=== PATIENT | male | born 1975 | race Caucasian/White ===

== ENCOUNTER 2016-10-20 12:32 | Day surgery (SDC) | payer BC, OTHER ==
[2016-10-20] MEDS ORDERED: LR 1,000 ML IV ONE (12:50)
[2016-10-20] MEDS ORDERED: LIDO/EPI 1% **Not for Epidural 20 ML MDV ONE (12:50)
[2016-10-20] MEDS ORDERED: LIDOCAINE 1% 5 ML SDV ID PRN (12:50)
[2016-10-20] MEDS ORDERED: SURGIFLO MATRIX KIT WITH THROMBIN TP ONE (12:51)
[2016-10-20] MEDS ORDERED: LIDOCAINE 1% 2 ML INJ ONE (12:54)
--- NOTE | 2016-10-20 13:09 | PDANEPAE ---
ANE History of Present Illness Nasal polyps. ANE Past Medical History - Cardiovascular History Hx Hypertension: No Hx Arrhythmias: No Hx Chest Pain: No Hx Coronary Artery / Peripheral Vascular Disease: No Hx CHF / Valvular Disease: No Hx Palpitations: No - Pulmonary History Hx COPD: No Hx Asthma/Reactive Airway Disease: Yes Hx Recent Upper Respiratory Infection: No Hx Oxygen in Use at Home: No - Neurologic History Hx Cerebrovascular Accident: No Hx Seizures: No Hx Dementia: No - Endocrine History Hx Diabetes: No Hypothyroid: No Hyperthyroid: No - Renal History Hx Renal Disorders: No - Liver History Hx Hepatic Disorders: No - Neurological & Psychiatric Hx Hx Neurological and Psychiatric Disorders: No - Cancer History Hx Cancer: No - Congenital Disorder History Hx Congenital Disorders: No - GI History Hx Gastrointestinal Disorders: No - Chronic Pain History Chronic Pain: No ANE Review of Systems - Exercise capacity Exercise capacity: <4 METS METS (RN): 5 METS ANE Patient History - Allergies Allergies/Adverse Reactions: acetaminophen Allergy (Verified 10/19/16 15:43) aspirin Allergy (Verified 10/19/16 15:43) NSAIDS (Non-Steroidal Anti-Inflamma Allergy (Verified 10/19/16 15:43) narcotics Allergy (Uncoded 03/07/12 16:25) Anaphylaxis - Home Medications Home Medications: Fluticasone/Salmeterol [Advair 500-50 Diskus] 60 puffs IH DAILY 03/07/12 [Last Taken Unknown] Doxycycline Hyclate 10/19/16 [Last Taken Unknown] Ventolin Hfa Inhaler 10/19/16 [Last Taken Unknown] - NPO status NPO Since - Liquids (Date): 10/19/16 NPO Since - Solids (Date): 10/19/16 - Smoking Hx Smoking Status: Never smoked - Alcohol Use Alcohol Use: None - Family Anes Hx Family Anes Hx: neg - N/A Family Hx Anesthesia Complications: NEG ANE Labs/Vital Signs - Vital Signs Height: 180.34 cm Weight: 65.771 kg ANE Physical Exam - Airway Mallampati Score: Class 2 - Pulmonary Pulmonary: clear to auscultation - Cardiovascular Cardiovascular: regular rate and rhythym - ASA Status ASA Status: II ANE Anesthesia Plan Anesthesia Plan: general endotracheal anesthesia (Patient to use Albuterol inhaler now.)
[2016-10-20] MEDS ORDERED: MIDAZOLAM 2 MG/2 ML VIAL IVP ONE (13:12)
[2016-10-20] MEDS ORDERED: REMIFENTANIL HCL 1 MG VIAL ONE ×2 (13:31→15:42)
[2016-10-20] MEDS ORDERED: PROPOFOL/EMULSION 500 MG/50 ML BOTTLE IV ONE ×2 (13:31→15:43)
--- NOTE | 2016-10-20 13:43 | PDHPUP ---
History & Physical Update H&P update statement: This history and physical update is based on an assessment of the patient which was completed after admission or registration (within 24 hours), but prior to the surgery/procedure. H&P update: H&P reviewed & patient examined, no change in patient's condition since H&P completed
[2016-10-20] MEDS ORDERED: DEXAMETHASONE 4 MG/ML VIAL ONE ×2 (13:49)
[2016-10-20] MEDS ORDERED: ONDANSETRON 4 MG/2 ML VIAL ONE (16:24)
[2016-10-20] MEDS ORDERED: fentaNYL 100 MCG/2 ML INJ ONE ×2 (16:32→17:31)
[2016-10-20] MEDS ORDERED: ALBUTEROL 3 ML DEYVIAL IH PRN (16:38)
[2016-10-20] MEDS ORDERED: fentaNYL 100 MCG/2 ML INJ IVP PRN (16:38)
[2016-10-20] MEDS ORDERED: NALOXONE HCL 0.4 MG/ML INJ IVP PRN (16:38)
[2016-10-20] MEDS ORDERED: ONDANSETRON 4 MG/2 ML VIAL IVP PRN (16:38)
--- NOTE | 2016-10-20 17:08 | POSTOPPROG ---
Post Op Note Date of Operation: 10/20/16 Surgeon: Jens Gonsalves Anesthesiologist: GA Anesthesia: GET(General Endotracheal) Pre-op Diagnosis: Sinonasal Pansinusitis Post-op Diagnosis: Sinonasal Pansinusitis Indication: Sinonasal Pansinusitis Procedure: FESS Maxillaries w, Ethmoids, Frontals Findings: Sinonasal Pansinusitis Inf/Abcess present in the surg proc area at time of surgery?: No Depth: Organ Space EBL: 50-100 Complications: NONE Specimen(s): R & L Sinonasal COntents
[2016-10-20] MEDS ORDERED: oxyCODONE IR 5 MG TAB PO PRN (17:20)
[2016-10-20 18:19] VITALS: RESP 18
[2016-10-20 18:44] VITALS: BP 115/97; PULSE 67; TEMP 208.8; O2SAT 95
[2016-10-21] MEDS ORDERED: DOXYCYCLINE HYCLATE PO SCH (09:00)
[2016-10-21] MEDS ORDERED: ALBUTEROL PO SCH (09:00)
[2016-10-21] MEDS ORDERED: FLUTICASONE/SALMETER 500/50MCG DISKUS IH SCH (09:00)
--- NOTE | 2016-11-04 23:11 | GOP ---
[f rep st] OPERATIVE REPORT DATE OF OPERATION: 10/20/2016 SURGEON: Jens Gonsalves MD ANESTHESIA: General. PREOPERATIVE DIAGNOSIS: Sinonasal pain and sinusitis with polyposis. POSTOPERATIVE DIAGNOSIS: Sinonasal pain and sinusitis with polyposis. PROCEDURE PERFORMED: Functional endoscopic sinus surgery with bilateral maxillary antrostomies and removal of tissue, bilateral total ethmoidectomies, bilateral frontal sinusotomy, and left sphenoid sinusotomy. FINDINGS: Sinonasal pansinusitis with bilateral obstructive nasal polyposis. SPECIMENS: Right and left sinonasal contents. ESTIMATED BLOOD LOSS: 75 mL. INDICATIONS: Long-standing sinonasal pansinusitis with obstructive nasal polyposis. DESCRIPTION OF PROCEDURE: The patient was brought to the operating room by Anesthesiology and place d on the operating table. Once the appropriate level of anesthesia was achieved, bilateral maxillar y lines and visible polyps within the nasal cavity were injected with 1% lidocaine with 1:100,000 ep inephrine. Afrin-soaked pledgets were then placed bilaterally. The patient was then prepped and dr aped in the usual fashion. Following draping, the patient was registered and set up appropriately w pickrset neuro navigation system. There was good concordance with anatomic landmarks at the st art of and throughout the case. Neuronavigation was used to confirm landmarks throughout significan t steps during the case. The remainder of the case was performed under rigid video endoscopic visua lization. Right-sided pledgets were removed. With the pledgets removed, a zero-degree endoscope wa s used to inspect the nasal cavity. A straight microdebrider was used to remove a significant porti on of polypoid material through the nasal cavity extending into the nasopharynx. This was removed u p until the finding of an atrophic floppy middle turbinate. The middle turbinate was then removed u sing a straight Thru-cut. Mild electrocautery was used at the base of the middle turbinates for hem ostasis. With this removed, a microdebrider was used to remove polypoid material that had replaced much of the ethmoid sinus. The total ethmoidectomy was completed with a combination of microdebride r, curette, and upgoing Blakesley. There was good visualization of the ethmoid roof/skull base at t he end of this. Palpation of the right globe showed some mild bulge into the nasal cavity but no de hiscence of the lamina papyracea or membranous wall. An uncinectomy was then completed with a [place] . A guided curved suction was then used to find the natural ostium of the maxillary sinus. Then th e maxillary antrostomy was then created with a combination of backbiter and straight going Thru-cut. Bovie suction electrocautery was then used for hemostasis at the posterior aspect of the maxillary antrostomy. Polypoid material was then removed with a combination of upgoing Blakesley and the jose m rodebrider. A 30-degree endoscope was then used to visualize the remainder of the maxillary sinus. It was clear. With the 30-degree endoscope, the frontal recess was cleared of polypoid material us ing an upgoing Blakesley and the microdebrider. A guided sinus Seeker was then used to find the fro ntal sinus ostium. A combination of upgoing Blakesley and mushroom punch were used to remove polypo id material from the frontal sinus and frontal sinus recess. The frontal sinus was widened with the mushroom punch. There was good visualization into the frontal sinus and it appeared clear at the e nd of this step. Nasal cavity was flushed with copious normal saline. No significant bleeding was seen but there was some generalized ooze throughout. The nasal cavity was then packed with Afrin-so aked pledgets. The pledgets were removed from the left nasal cavity, and under zero-degree video endoscope the nasa l cavity was inspected. A microdebrider was used to remove significant nasal polyposis that extende d from the vestibule through to the nasopharynx. The turbinate was not as atrophic on this side, th ough there was a significant amount of polypoid change. It was elected to remove this and a straigh t-going Thru-cut was again used to complete the middle turbinectomy. The turbinate base was cauteri zed using mild Bovie suction electrocautery. Following this, uncinectomy was completed and the natu ral maxillary sinus ostia was confirmed with a guided suction. The maxillary antrostomy was widened with a combination of backbiter and straight-going Thru-cut. Polypoid material was removed with a Blakesley. Maxillary sinus was visualized with a 30-degree endoscope and was found to be clear afte r this. A zero-degree endoscope was then used to visualize the ethmoid sinuses. The bulla was take n down and a total ethmoidectomy was completed with a combination of curette, [place], and upgoing Blakesley. The ethmoids were clear through to the ethmoid roof/skull base. Polypoid material was s een medial to the middle turbinate root covering the sphenoid sinus ostium. A guided suction was us ed to find the natural ostium and the microdebrider was used to remove polyps in this region. A Ker rison was then used to complete the sphenoid sinusotomy. Following this, a 30-degree endoscope was placed and the frontal recess was cleared of polypoid material with a combination of upgoing Blakesl ey and the microdebrider. The location of the frontal sinus ostium was confirmed with a guided sinu s Seeker. Following this, the ostium and frontal sinus were cleared of polypoid material with a com bination of upgoing Blakesley and a giraffe punch. The giraffe was then used to widen the frontal s inus ostium. There was good visualization of the frontal sinus following this with no evidence of p olypoid disease within the sinus any longer. The nasal cavity was irrigated with copious normal shabbir ine. The posterior aspect of the maxillary antrostomy was cauterized with Bovie suction electrocaut khurram. There was some mild generalized ooze throughout the surgical site. Afrin-soaked pledgets were placed. The pledgets on the right-hand side were removed. There was reasonable hemostasis there, though some mild general ooze. Surgiflo was placed and spread throughout the surgical site. The pl edgets on the left were then removed and again, though there was good general hemostasis, given some mild continuous ooze, Surgiflo was placed. The patient tolerated the procedure well and was extuba cheryl in the operating room prior to being transferred in good condition to postanesthesia care unit. /[id number]/MODL
== END 2016-10-20 17:00 | disposition home or self-care (01) ==
LOC: FSGY 12:32
PROVIDERS: ATTEND Otolaryngology
PROC: 09C Ear, Nose, Sinus, Extirpation (ICD-10-PCS; principal; 2016-10-20 13:45)
PROC: 09B Ear, Nose, Sinus, Excision (ICD-10-PCS; principal; 2016-10-20 13:45)
PROC: 09C Ear, Nose, Sinus, Extirpation (ICD-10-PCS; principal; 2016-10-20 13:45)
PROC: 09TV4ZZ Resection of Left Ethmoid Sinus, Percutaneous Endoscopic Approach (ICD-10-PCS; principal; 2016-10-20 13:45)
PROC: 09B Ear, Nose, Sinus, Excision (ICD-10-PCS; principal; 2016-10-20 13:45)
PROC: 09TU4ZZ Resection of Right Ethmoid Sinus, Percutaneous Endoscopic Approach (ICD-10-PCS; principal; 2016-10-20 13:45)
DX: J33.9 Nasal polyp, unspecified (principal); J32.4 Chronic pansinusitis; J34.89 Other specified disorders of nose and nasal sinuses; J45.909 Unspecified asthma, uncomplicated; J30.89 Other allergic rhinitis; Z88.6 Allergy status to analgesic agent
CPT/HCPCS: J1100; J2250; J2405; J2704; J3010